=== PATIENT | female | born 1995 ===

== ENCOUNTER 2024-01-31 17:01 | Inpatient (IN) | payer SELFPAY ==
[2024-01-31] MEDS: Ampicillin 2 GM Vial ONE (17:23)
[2024-01-31] MEDS: Lactated Ringers 1,000 ML IV SCH (17:25)
[2024-01-31] MEDS ORDERED: Sodium Chloride 0.9% 20 ML SDV IV PRN (17:33)
[2024-01-31] MEDS ORDERED: Carboprost Tromethamine 250 MCG/1 mL Vial IM PRN (17:33)
[2024-01-31] MEDS ORDERED: Water For Irrigation,Sterile 1,000 ML Container IRR PRN (17:33)
[2024-01-31] MEDS ORDERED: Ondansetron 4 MG/2 ML SDV IVPUSH PRN (17:33)
[2024-01-31] MEDS ORDERED: Sodium Chloride 0.9% 2.5 ML Syringe FLUSH PRN ×2 (17:33→19:29)
[2024-01-31] MEDS ORDERED: Sodium Chloride 0.9% 10 ML Syringe FLUSH PRN ×2 (17:33→19:29)
[2024-01-31] MEDS ORDERED: Tranexamic Acid IN NACL,ISO-OS 1,000 MG in Premix Bag 1 BAG IV PRN (17:33)
[2024-01-31] MEDS ORDERED: Ampicillin 2 GM in Sodium Chloride 0.9% 100 ML IV ONE (17:33)
[2024-01-31] MEDS ORDERED: Nalbuphine 10 MG/0.5 ML Syringe IVPUSH PRN (17:33)
[2024-01-31] MEDS: Sodium Chloride 0.9% 100 ML ONE (17:36)
[2024-01-31 17:40] LABS: HEMATOCRIT 32.4 % (37.0-47.0); HEMOGLOBIN 11.1 g/dL (12.0-16.0); MEAN CORPUSCULAR HEMOGLOBIN 27.3 pg (28.0-32.0); MEAN CORPUSCULAR HGB CONC 34.3 g/dL (32.0-36.0); MEAN CORPUSCULAR VOLUME 79.6 fL (83.0-99.0); MEAN PLATELET VOLUME 11.4 fL (9.4-12.3); PLATELET COUNT,PLT 329 K/uL (150-400); RED BLOOD CELL COUNT 4.07 M/uL (4.10-5.30); WHITE BLOOD CELL COUNT,WBC 11.06 K/uL (3.9-11.3)
[2024-01-31] MEDS: Oxytocin/0.9 % Sodium Chloride 30 UNIT/500 ML BAG IV SCH (18:28)
[2024-01-31] MEDS: Misoprostol 200 MCG Tab PO PRN (18:55)
[2024-01-31] MEDS: Methylergonovine 0.2 MG/1 ML Amp IM PRN (18:55)
[2024-01-31] MEDS: Lidocaine 1% 50 ML MDV INJECT PRN (19:01)
[2024-01-31] MEDS ORDERED: Bisacodyl 10 MG Supp RECTAL PRN (19:29)
[2024-01-31] MEDS ORDERED: Famotidine 20 MG Tab PO PRN (19:29)
[2024-01-31] MEDS ORDERED: Docusate Sodium 100 MG Cap PO PRN (19:29)
[2024-01-31] MEDS ORDERED: Simethicone 80 MG Tab.Chew PO PRN (19:29)
[2024-01-31] MEDS ORDERED: diphenhydrAMINE 50 MG Cap PO PRN (19:29)
[2024-01-31] MEDS ORDERED: Sennosides 8.6 MG Tab PO PRN (19:29)
[2024-01-31] MEDS ORDERED: Lanolin 100% Cream 7 GM Tube TOP PRN (19:29)
[2024-01-31] MEDS ORDERED: Ibuprofen 800 MG Tab PO PRN (19:29)
[2024-01-31] MEDS ORDERED: Aluminum Hydroxide/Magnesium Hydroxide/Simethicone XS Susp 30 ML Cup PO PRN (19:29)
[2024-01-31] MEDS: Benzocaine/Menthol 20%-0.5% Spray 78 GM Cannister TOP PRN (21:40)
[2024-01-31] MEDS: Witch Hazel Medicated Pads 40/Jar TOP PRN (21:40)
[2024-01-31] MEDS: Acetaminophen 500 MG Tab PO PRN (22:43)
[2024-02-01 06:10] LABS: HEMATOCRIT 25.5 % (37.0-47.0); HEMOGLOBIN 8.7 g/dL (12.0-16.0)
[2024-02-01] MEDS ORDERED: Labetalol 100 MG/20 ML MDV IVPUSH ONE (17:15)
== END 2024-02-02 18:14 | disposition home or self-care (01) | DRG 806 ==
LOC: MW.OBCHECK 17:01 → MW.OB 17:03 → MW.OBCHECK 17:43 → MW.OB 18:32 → OBSVTOIN 18:56 → MW.OB 22:44
PROVIDERS: ADMIT Obstetrics & Gynecology; ATTEND Obstetrics & Gynecology Obstetrics
PROC: 10E0XZZ Delivery of Products of Conception, External Approach (ICD-10-PCS; principal; 2024-01-31)
PROC: 0KQM0ZZ Repair Perineum Muscle, Open Approach (ICD-10-PCS; 2024-01-31)
PROC: 10907ZC Drainage of Amniotic Fluid, Therapeutic from Products of Conception, Via Natural or Artificial Opening (ICD-10-PCS; 2024-01-31)
DX: O99.824 Streptococcus B carrier state complicating childbirth (principal); D62 Acute posthemorrhagic anemia; Z37.0 Single live birth; Z60.3 Acculturation difficulty; O70.1 Second degree perineal laceration during delivery; O62.2 Other uterine inertia; O99.02 Anemia complicating childbirth; Z3A.39 39 weeks gestation of pregnancy
CPT/HCPCS: 36415; 59025; 59409; 85014; 85018; 85027; 86592; 86850; 86900; 86901; A9270-GY; J0290; J2001; J2210; J2590; J3490; J7120